=== PATIENT | male | born 1990 | race Caucasian/White ===

== ENCOUNTER 2020-09-01 13:56 | Outpatient (REF) | payer MEDICAID, SELFPAY ==
--- NOTE | ~2020-09-01 | US_ITS ---
EXAMINATION: US ABDOMEN LIMITED CLINICAL INFORMATION: Chest wall mass. COMPARISON: None TECHNIQUE: Real-time imaging of the left anterior rib and left lower back. FINDINGS: At the left anterior rib palpable abnormality there is a hyperechoic ovoid well-circumscribed mass measuring 1.9 x 0.8 x 1.9 cm. No significant Doppler vascularity. At the left lower back palpable abnormality there is a somewhat hyperechoic area which is fairly well-defined measuring 0.7 x 0.4 x 0.6 cm. No Doppler vascularity. US/US abdomen limited IMPRESSION: At both palpable areas, mildly hyperechoic lesions are identified likely representing lipomas.
== END 2020-09-01 13:57 | disposition home or self-care (01) ==
LOC: HO.US 13:56
PROVIDERS: PCP General Practice; Visit Provider General Practice
DX: M79.9 Soft tissue disorder, unspecified (principal)
CPT/HCPCS: 76705

== ENCOUNTER → 2020-11-16 14:52 | Outpatient (BNVA) | payer MEDICAID, SELFPAY | PROVIDERS: PCP General Practice; Visit Provider Surgery | DX: D17.1 Benign lipomatous neoplasm of skin and subcutaneous tissue of trunk (principal) | CPT/HCPCS: 99202 ==

== ENCOUNTER 2022-06-01 18:37 | Outpatient (REF) | payer OTHER, SELFPAY ==
[2022-06-02 02:32] LABS: CT PCR NOT DETECTED (Not Detect.); NG PCR NOT DETECTED (Not Detect.)
== END 2022-06-01 18:38 | disposition home or self-care (01) ==
LOC: HO.LNP 18:37
DX: Z11.3 Encounter for screening for infections with a predominantly sexual mode of transmission (principal); Z71.1 Person with feared health complaint in whom no diagnosis is made
CPT/HCPCS: 87491; 87591

== ENCOUNTER 2022-07-28 14:19 | Outpatient (REF) | payer OTHER, SELFPAY | END 2022-07-28 14:20 | disposition home or self-care (01) | LOC: HO.LNP 14:19 | PROVIDERS: Visit Provider Nurse Practitioner Family | DX: N48.89 Other specified disorders of penis (principal) | CPT/HCPCS: 87255 ==

== ENCOUNTER 2023-09-02 18:43 | Emergency (ER) | payer OTHER, SELFPAY ==
--- NOTE | 2023-09-02 | ECG_ITS ---
Test Reason : CHEST PAIN Blood Pressure : / mmHG Vent. Rate : 069 BPM Atrial Rate : 069 BPM P-R Int : 152 ms QRS Dur : 082 ms QT Int : 348 ms P-R-T Axes : -09 057 041 degrees QTc Int : 372 ms Normal sinus rhythm Normal ECG No previous ECGs available Referred By: Generic ED Physician Electronically Signed By:LAKE VANCE MD
[2023-09-02 18:53] VITALS: BP 125/86; PULSE 74; RESP 18; TEMP 36.7; O2SAT 98; BMI 26.4
[2023-09-02 19:12] LABS: Hematocrit 41.2 % (42.0-52.0); Hemoglobin 14.5 g/dl (14.0-18.0); Mean Corpuscular HGB Conc 35.2 g/dl (31.0-36.0); Mean Corpuscular Volume 85.3 fL (80.0-98.0); Platelet Count 203 X10*3/uL (160-400); Red Blood Count 4.83 X10*6/uL (4.60-5.80); White Blood Count 6.2 X10*3/uL (4.8-10.8)
[2023-09-02 19:25] LABS: Alanine Aminotransferase 37 U/L (0-40); Albumin Level 4.3 g/dL (3.5-5.0); Alkaline Phosphatase 53 U/L (39-117); Anion Gap 12 (12-20); Aspartate Amino Transferase 28 U/L (5-37); Bilirubin Total 0.4 mg/dL (0.0-1.0); Blood Urea Nitrogen 13 mg/dL (9-16); Calcium 9.6 mg/dL (8.4-10.2); Carbon Dioxide 26 mmol/L (22-29); Chloride 106 mmol/L (96-108); Creatinine Clr Calc Pharmacy 147.4; Estimated Glomerular Filt Rate > 60; Glucose Random 118 mg/dL (60-115); Potassium 4.2 mmol/L (3.3-5.1); Sodium 140 mmol/L (135-145); Total Protein 7.6 g/dL (6.5-8.0)
[2023-09-02 19:32] LABS: Troponin-I High Sensitivity < 2.7 ng/L (<3.5-35.0)
[2023-09-02 20:01] VITALS: BP 125/80; PULSE 70; RESP 11; TEMP 36.8; O2SAT 98
--- NOTE | 2023-09-02 21:12 | ED_ITS ---
HPI - Chest Pain General Chief Complaint: Chest Pain Stated Complaint: chest pain, dizziness Time Seen by Provider: 09/02/23 21:00 Source: patient Mode of arrival: ambulatory Limitations: no limitations History of Present Illness HPI narrative: 32 yo male remote hx of cocaine abuse hx of nose bleeds since then developed nose bleed today that lasted longer than usual started to feel woozy and then developed chest tightness and felt off. No known CAD, no hx of VTE. He feels fine now but wanted to get checked out. nose bleed has stopped - no trauma. MD complaint: chest heaviness Onset (ago): hour(s) (few) Timing of current episode: now resolved Prior episodes: Yes Onset: during rest Pain location: substernal Pain radiation: none Quality: tightness Relieving factors: nothing Exacerbating factors: stress Context: recent illness (after nose bleed) Associated symptoms: dyspnea Treatment prior to arrival: none Related Data Home Medications Medication Instructions Recorded Confirmed No Known Home Meds 11/16/20 11/16/20 Allergies Allergy/AdvReac Type Severity Reaction Status Date / Time acetaminophen [From VICODIN] Allergy Intermediate VOMITING Verified 09/02/23 18:53 hydrocodone [From VICODIN] Allergy Intermediate VOMITING Verified 09/02/23 18:53 Hydrocodone Bitartrate Allergy Unknown vomiting, Uncoded 09/02/23 18:53 pallor Review of Systems 2 Review of Systems: Constitutional : No Fever, No Chills ENT/Mouth : No Ear Pain, No Nasal Congestion, positive nose bleed Eyes: No Eye Pain, No Swelling, No Redness Cardiovascular : pos Chest Pain, No SOB Respiratory : No Cough, No Sputum Gastrointestinal : No Nausea, No Vomiting, No Diarrhea Genitourinary : No Dysuria, No Hematuria Musculoskeletal : No joint pain, No Myalgias Skin : No Skin Lesions, No rash Neuro : No Weakness, No Numbness, No headache Psych : No Anxiety/Panic, No Depression Heme/Lymph: positive Bleeding,No Lymphadenopathy Endocrine : No Polyuria, No Polydipsia All other systems reviewed and are negative [facility] Past Medical History Attestation statement: The following information was validated with the patient. Source: old records reviewed Medical History Acute anterior epistaxis Surgical History History of surgery on left wrist History of fracture of clavicle Family History Family History Paternal Grandfather Lung cancer Throat cancer Maternal Grandmother Lung cancer Throat cancer Social History Social History Alcohol intake: never Patient Tobacco Use Status: Former Tobacco user Advance Directives: No Advance Directives Information Provided: No Physical Exam 2 Vital Signs: Vital Signs: Last Vital Signs Temp 98.3 F 09/02/23 20:01 Pulse 70 09/02/23 20:01 Resp 11 L 09/02/23 20:01 BP 125/80 09/02/23 20:01 Pulse Ox 98 09/02/23 20:01 O2 Del Method Room Air 09/02/23 20:01 BMI result Body Mass Index 26.4 Appearance: Alert. Oriented X3. No acute distress. Eyes: Pupils equal, round and reactive to light. ENT: Pharynx normal. Dried blood on L nares no active bleeding Neck: Normal inspection. Neck supple. CVS: Normal heart rate and rhythm. Pulses normal. Respiratory: No respiratory distress. Breath sounds normal. Abdomen: Soft and nontender. Skin: Skin warm and dry. Normal skin color. Normal skin turgor. Extremities: No lower extremity edema. No calf ttp Neuro: Oriented X 3. No motor deficit. No sensory deficit. Medical Decision Making Medical Decision Making [facility] Narrative: 32 yo male with hx of nosebleeds remote cocaine denies any use today here with resolved chest pain that started after nose bleed felt tightness he is PERC negative, distal pulses intact doubt dissection, no CAD risk factors is atypical in nature not related to exertion. Clear lungs no hypoxia doubt PTX. Will obtain labs, EKG and troponin if negative stable for DC Differential Diagnosis Differential Diagnoses: The differential diagnosis associated with the presentation includes atypical chest pain, anxiety reaction, near syncope pulses intact doubt dissection PERC negative doubt VTE Admission/Observation Consideration of admission/observation: Escalation of care including admission/observation considered work up negative stable for DC Lab Data [facility] Lab Attestation statement: I reviewed the patient's lab results. 09/02/23 19:06 09/02/23 19:06 Labs: Lab Results 09/02/23 Range/Units 19:06 WBC 6.2 (4.8-10.8) X10*3/uL RBC 4.83 (4.60-5.80) X10*6/uL Hgb 14.5 (14.0-18.0) g/dl Hct 41.2 L (42.0-52.0) % MCV 85.3 (80.0-98.0) fL MCH 30.0 (27.0-33.0) pg MCHC 35.2 (31.0-36.0) g/dl RDW 12.0 (11.0-16.0) % Plt Count 203 (160-400) X10*3/uL MPV 10.0 (9.4-12.4) fL Absolute Nucleated RBC 0.000 (0.0-0.012) X10*3/uL Nucleated RBC % (auto) 0.0 (0.0-0.2) /100WBC Sodium 140 (135-145) mmol/L Potassium 4.2 (3.3-5.1) mmol/L Chloride 106 (96-108) mmol/L Carbon Dioxide 26 (22-29) mmol/L Anion Gap 12 (12-20) BUN 13 (9-16) mg/dL Creatinine 0.78 (0.5-1.4) mg/dL Estim Creat Clear Calc 147.4 Estimated GFR > 60 Random Glucose 118 H (60-115) mg/dL Calcium 9.6 (8.4-10.2) mg/dL Total Bilirubin 0.4 (0.0-1.0) mg/dL AST 28 (5-37) U/L ALT 37 (0-40) U/L Alkaline Phosphatase 53 (39-117) U/L Troponin I High Sens < 2.7 (<3.5-35.0) ng/L Total Protein 7.6 (6.5-8.0) g/dL Albumin 4.3 (3.5-5.0) g/dL Independent Interpretation I performed an independent interpretation of an: EKG Interpretation: Rate: 69 Rhythm: NSR Hallock: normal Normal P waves. Normal ACOSTA. Normal QRS complex. ST T wave : normal no TEVIN qTC: 372 prior studies: no acute ischemia The study has been interpreted contemporaneously by me. . External Record Review External record reviewed: Office record Discharge Plan Discharge Clinical Impression: Atypical chest pain, Acute anterior epistaxis Patient Disposition: Home, Self-Care Instructions: Chest Pain (ED), Nosebleed (ED) Additional Instructions: use saline mist to nose twice a day to keep area from cracking. use aquaphor or bacitracin on cracked area twice a day for 3 days. return for worsening bleeding pain dizziness or any other concerns. rest and take it easy. Prescriptions: No Action No Known Home Meds Stand Alone Forms: Work/School Release
[2023-09-02 22:23] VITALS: BP 120/70; PULSE 74; RESP 19; TEMP 36.8; O2SAT 98
== END 2023-09-02 22:28 | disposition home or self-care (01) ==
PROVIDERS: Emergency Provider Emergency Medicine; PCP General Practice
DX: R07.89 Other chest pain (principal); R04.0 Epistaxis; F14.10 Cocaine abuse, uncomplicated
CPT/HCPCS: 36415; 80053; 84484; 85027; 93005; 99283; 99284

== ENCOUNTER → 2023-09-02 18:45 | Outpatient (BNV) | payer OTHER, SELFPAY | PROVIDERS: Emergency Provider Emergency Medicine; PCP General Practice; Visit Provider Internal Medicine Cardiovascular Disease | DX: R07.9 Chest pain, unspecified (principal) | CPT/HCPCS: 93010 ==

== ENCOUNTER 2023-12-29 22:24 | Emergency (ER) | payer OTHER, SELFPAY ==
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
[2023-12-29 22:28] VITALS: BP 136/97; PULSE 104; RESP 20; TEMP 36.6; O2SAT 97; BMI 24.4
[2023-12-29] MEDS: Ibuprofen 600 MG TABLET PO (23:57)
[2023-12-29] MEDS: Diphth,Pertus(ACell),Tet Adult 0.5 ML SYRINGE IM (23:57)
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
[2023-12-30 00:33] VITALS: BP 130/82; PULSE 90; RESP 18; TEMP 36.8; O2SAT 97
== END 2023-12-30 00:34 | disposition home or self-care (01) ==
PROVIDERS: Emergency Provider Emergency Medicine; PCP General Practice
DX: S90.01XA Contusion of right ankle, initial encounter (principal); S80.811A Abrasion, right lower leg, initial encounter; S60.812A Abrasion of left wrist, initial encounter; V28.09XA Other motorcycle driver injured in noncollision transport accident in nontraffic accident, initial encounter; Y93.89 Activity, other specified; Y92.410 Unspecified street and highway as the place of occurrence of the external cause; Y99.9 Unspecified external cause status; Z23 Encounter for immunization
CPT/HCPCS: 73110; 73560; 73610; 90471; 90715; 99284

== ENCOUNTER 2024-01-30 16:18 | Outpatient (REF) | payer OTHER, SELFPAY ==
--- NOTE | ~2024-01-30 | XR_ITS ---
EXAMINATION: XR HAND/WRIST, LEFT CLINICAL INFORMATION: Hand pain. COMPARISON: Left wrist 12/29/2023. TECHNIQUE: PA, lateral, and oblique views of the left hand and wrist. FINDINGS: ORIF distal left radius with no evidence of hardware failure. No acute fracture. Mineralization appears normal. No significant degenerative changes. XR/XR hand wrist LT IMPRESSION: Stable ORIF distal left radius. No acute fracture. Electronically signed by: Gonzalez Mackenzie MD 02/14/2024 01:53 PM EDT
== END 2024-01-30 16:19 | disposition home or self-care (01) ==
LOC: HO.XRAY 16:18
PROVIDERS: Visit Provider General Practice
DX: M25.532 Pain in left wrist (principal); M79.642 Pain in left hand
CPT/HCPCS: 73110; 73130

== ENCOUNTER 2025-01-12 13:53 | Outpatient (REF) | payer OTHER, SELFPAY ==
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
--- OUTSIDE RECORDS SUMMARY | 2025-01-12 14:27 | XMS_ITS | Clinical Summary ---
Author Organization [facility] Address [address] [place] [address] Care Team Providers Care Brush Polisher Name Role Phone Yusra Howard MD Primary Care Provider [phone] Allergies No known active allergies Medications multivitamin with folic acid 400 mcg tablet tablet Take 1 tablet by mouth once daily. Active Social History Tobacco Use Types Packs/Day Years Used Date Smoking Tobacco: Former Cigarettes Q uit: 2018 Passive Smoke Exposure: Past Smokeless Tobacco: Never Alcohol Use Standard Drinks/Week Comments Yes 0 (1 standard drink = 0.6 oz pur e alcohol) Social; 1-2 times per month Sex and Gender Information Value Date Recorded Sex Assigned at Male 02/12/2024 8:47 AM EDT Legal Sex Male 1:11 PM EDT Gender Identity Male 02/12/2024 8:47 AM EDT Sexual Orientation Straight 02/12/2024 8: 47 AM EDT Last Filed Vital Signs Vital Sign Reading Time Taken Comments Blood Pressure 116/72 02/21/2024 11:16 AM EDT Pulse 66 02/21/2024 11:16 AM EDT Temperature 36.6 C (97.8 F) 02/21/2024 11:11 AM EDT Respiratory Rate 16 02/21/2024 11:16 AM EDT Oxygen Saturation 100% 02/21/2024 11:16 AM EDT Inhaled Oxygen Concentration - - Weight 78.5 kg (173 lb) 02/21/2024 8:14 AM EDT Height 180.3 cm (5' 11 ) 02/21/2024 8:14 AM EDT Body Mass Index 24.13 02/21/2024 8:14 AM EDT Plan of Treatment Health Maintenance Due Date Last Done Comments HIV Screening 1992 Varicella Vaccines (1 of 2 - 13+ 2-dose series) 2005 HPV Vaccines (2 - Male 3-dose series) 09/13/2010 08/16/2010 Hepatitis C Screening 2010 Hepatitis A Vaccines (2 of 2 - 2-dose series) 02/16/2011 08/16/2010 Pneumococcal Vaccine: Pediatrics (0 to 5 Years) and At-Risk Patients (6 to 49 Years) (2 of 2 - PCV) 09/03/2018 09/03/2017 COVID-19 Vaccine (1 - 2023- season) 2024 Depression Screening 06/04/2024 Influenza Vaccine (#1) 2025 05/16/2019 DTaP/Tdap/Td Vaccines (8 - Td or Tdap) 06/26/2027 06/26/2017, 02/01/2007, 10/06/1997, Additional history exists Hepatitis B Vaccines Completed 09/02/1993, 01/02/1993, 1992 HIB Vaccines Completed 02/02/1994, 0 06/1993, 04/04/1993, Additional history exists IPV Vaccines Completed 06/04/1994, 0 06/1993, 04/04/1993, Additional history exists MMR Vaccines Completed 10/06/1997, 02/02/1994 Meningococcal Vaccine Aged Out 02/01/2007 No chantel billy eligible based on patient's age to complete this topic Meningococcal B Vaccine Aged Out No l onger eligible based on patient's age to complete this topic Rotavirus Vaccines Aged Out No longer eligible based on patient's age to complete this topic Medical Devices Implanted Type Area Retail Beauty Specialist Device Identifier Shelf Expiration Date Model / Serial / Lot Mesh Ventralex St 4cm Circ [id number] - [id number] Implanted:Qty: 1 on 02/21/2024 by Byron Ruelas MD at [facility] Mesh N/A: Umbilical PS-BARD DAVOL 07/01/2025 [id number] / / [id number] Insurance [facility] Advance Directives * Full Code (Latest Code Status on File) Date Activated Date Inactivated Comments 02/21/2024 7:53 AM Care Teams Brush Polisher Relationship Specialty Start Date End Date Yusra Howard MD [address] [place] [id number] PCP - General Cooler Supervisor 02/12/24
--- OUTSIDE RECORDS SUMMARY | 2025-01-12 14:27 | XMS_ITS | Clinical Summary ---
Author Organization [facility] Address [address] [place] [address] Phone Care Team Providers Care Release Manager Name Role Phone Yusra Howard MD Primary Care Provider + Allergies No known active allergies Medications No known medications Family History Medical History Relation Comments Diabetes Mother Relation Status Comments Father Alive Mother Alive Social History Tobacco Use Types Packs/Day Years Used Date Smoking Tobacco: Some Days Cigarettes Smokeless Tobacco: Never Tobacco Cessation:Ready to Q uit: Not Asked; Counseling Given: Not Answered Alcohol Use Standard Drinks/Week Comments Yes 0 (1 standard drink = 0.6 oz pur e alcohol) Education Answer Date Recorded Are you interested in more education? Not on kassie e 09/30/2022 Are you concerned about learning? Not on file 09/30/2022 No 09/30/2022 No 09/30/2022 Digital Access Answer Date Recorded No 2022 No 2022 No 2022 Reliable internet access at home? Not on file 2022 Device with a working camera? Not on file Sex and Gender Information Value Date Recorded Sex Assigned at Not on file Legal Sex Male 10:31 AM EST Gender Identity Not on file Sexual Orientation Not on file Last Filed Vital Signs Vital Sign Reading Time Taken Comments Blood Pressure 102/62 04/11/2022 8:58 AM EST Pulse 65 04/11/2022 8:58 AM EST Temperature - - Respiratory Rate - - Oxygen Saturation - - Inhaled Oxygen Concentration - - Weight 76.8 kg (169 lb 6.4 oz) 04/11/2022 8:58 A M EST Height 180.3 cm (5' 11 ) 04/11/2022 8:58 AM EST Body Mass Index 23.63 04/11/2022 8:58 AM EST Plan of Treatment Health Maintenance Due Date Last Done Comments Adult Td,Tdap Booster 1992 DEPRESSION SCREENING 2004 SMOKING Hx and SMOKELESS TOB ACCO SCREENING 2005 HEPATITIS C SCREENING 2010 HIV ONE-TIME SCREENING (18-6 5 YEARS) 2010 PNEUMOCOCCAL VACCINES (0-49 years) (1 of 2 - PCV) 10/30/2011 COVID-19 VACCINE ( - 2023-2 5 season) 2024 HEPATITIS A VACCINES Aged Out No long er eligible based on patient's age to complete this topic HIB VACCINES Aged Out No longer eligi ble based on patient's age to complete this topic MENINGOCOCCAL VACCINES (ACWY) Aged Out No longer eligible based on patient's age to complete this topic MENINGOCOCCAL VACCINES (B) Aged Out N o longer eligible based on patient's age to complete this topic Medical Devices Not on file Insurance [facility] PPO [facility] PPO [facility] PPO [facility] PPO [facility] PPO [facility] PPO Care Teams Release Manager Relationship Specialty Start Date End Date Yusra Howard MD PCP - General 04/11/22 Additional Source Comments The information contained in this document represents components of the legal health record. It is not the complete legal health record.[facility]
[2025-01-15 23:28] LABS: C. Trachomatis RNA TMA, Throat NOT DETECTED; N. gonorrhoeae RNA TMA, Throat NOT DETECTED
== END 2025-01-12 13:54 | disposition home or self-care (01) ==
LOC: HO.HHCLNP 13:53
PROVIDERS: Visit Provider Internal Medicine
DX: Z11.3 Encounter for screening for infections with a predominantly sexual mode of transmission (principal); Z11.8 Encounter for screening for other infectious and parasitic diseases; J02.9 Acute pharyngitis, unspecified
CPT/HCPCS: 87070; 87491; 87591

== ENCOUNTER 2025-02-23 06:00 | Outpatient (RCR) | payer OTHER, SELFPAY | END 2025-02-23 06:57 | disposition home or self-care (01) | LOC: HO.PTCHIC 06:00 | PROVIDERS: PCP General Practice; Visit Provider Nurse Practitioner Family | DX: M54.6 Pain in thoracic spine (principal) | CPT/HCPCS: 97012; 97110; 97112; 97116; 97140; 97161; 97530 ==

== ENCOUNTER → 2025-03-04 07:44 | Outpatient (BNV) | payer OTHER, SELFPAY | PROVIDERS: PCP General Practice; Visit Provider Radiology Diagnostic Radiology | DX: M47.817 Spondylosis without myelopathy or radiculopathy, lumbosacral region (principal); M51.27 Other intervertebral disc displacement, lumbosacral region | CPT/HCPCS: 72148 ==

== ENCOUNTER 2025-03-04 07:55 | Outpatient (REF) | payer OTHER, SELFPAY ==
--- NOTE | ~2025-03-04 | MR_ITS ---
EXAMINATION: MR LUMBAR SPINE WITHOUT CONTRAST CLINICAL INFORMATION: Persistent low back pain after lifting weight. COMPARISON: None available. TECHNIQUE: MRI of the lumbar spine was obtained using routine sequences without contrast. FINDINGS: Last rib-bearing vertebra labeled T12. No bone marrow STIR signal abnormality. Decreased intervertebral disc signal and height at L5-S1. Normal alignment. Conus medullaris ends at inferior endplate of L1. 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 T12-L1: Broad-based disc bulging. Facet joint hypertrophy. No central spinal canal or neuroforamina stenosis. L1-2: Broad-based disc bulging. No central spinal canal or neuroforamina stenosis. L2-3: Broad-based disc bulging. Facet joint and ligamentum flavum hypertrophy. No central spinal canal or neuroforamina stenosis. L3-4: Broad-based disc bulging. Facet joint and ligamentum flavum hypertrophy. No central spinal canal or neuroforamina stenosis. L4-5: Broad-based disc bulging. Facet joint hypertrophy. No central spinal canal or neuroforamina stenosis. L5-S1: There is a central broad-based herniated disc at by in the S1 nerve roots without compression. Bilateral facet joint and ligamentum flavum hypertrophy. Bilateral neuroforamina narrowing likely encroaching L5 exiting nerve roots. No prevertebral compartment hematoma, mass or fluid collections. MR/MR lumbar spine wo con IMPRESSION: Multilevel spondylosis L1-2 to L5-S1, pronounced at L5-S1 encroaching L5 nerve roots. Broad-based central herniated disc, L5-S1 abutting the S1 nerve roots. Electronically signed by: Patrick Owens MD 03/04/2025 08:42 AM EDT
--- OUTSIDE RECORDS SUMMARY | 2025-03-04 07:58 | XMS_ITS | Encounter Summary ---
Author Organization [employer] Address [address] [place] [address] 7 [place] [address] Care Team Providers Care Remote Encoding Operations Supervisor Name Role Phone Yusra Howard MD Primary Care Provider [phone] Reason for Referral * Consultation (Routine) - Pending Review Specialty Diagnoses / Procedures Referred By Lisa t Referred To Contact Orthopaedic Surgery Diagnoses Acute low back pain, unspecified back pain laterality, unspecified whether sciatica present Yusra Howard MD [address] [place] [phone] Phone: tel: fax: [facility] [address] [place] [address] [place] [address] Phone: tel: fax: Referral ID Status Reason Start Date Expiration Date Visits Requested Visits Authorized [id number] Pending Review Specialty Services Required 12/25/2024 12/25/2025 1 1 Encounter Details Date Type Department Care Team (Late st Contact Info) Description 12/25/2024 Orders Only [facility] MEDICINE [address] [place], [place] [phone] Yusra Howard MD [address] [place], [place] [phone] Acute low back pain, unspecified back pain laterality, unspecified whether sciatica present (Primary Dx) Social History Tobacco Use Types Packs/Day Years [...] AM EDT documented as of this encounter Plan of Treatment Scheduled Referrals Name Type Priority Associated Diagnoses Orde r Schedule Referral to Orthopaedic Surgery Outpatient Referral Routine Acute low back pain, unspecified back pain laterality, unspecified whether sciatica present Expected: 12/25/2024 (Approximate), Expires: 12/25/2025 documented as of this encounter Visit Diagnoses Diagnosis Acute low back pain, unspecified back pain laterality, unspecified whether sciatica present- Primary documented in this encounter Additional Health Concerns Assessment Noted Time PHQ-9 Depression Total Score: 2 01/30/20 24 3:35 PM EDT documented as of this encounter Care Teams Remote Encoding Operations Supervisor Relationship Specialty Start Date End Date Yusra Howard MD [address] [place] [address] PCP - General Family Medicine 06/22/20 documented as of this encounter
--- OUTSIDE RECORDS SUMMARY | 2025-03-04 07:58 | XMS_ITS | Encounter Summary ---
Author Organization [employer] Address [address] [facility] 7t [place] [address] Care Team Providers Care Construction Trench Digger Name Role Phone Yusra Howard MD Primary Care Provider [phone] Reason for Visit * Reason Onset Date Comments Referral 02/04/2025 Encounter Details Date Type Department Care Team ([facility] st Contact Info) Description 02/04/2025 Telephone [facility] MEDICINE [address] [place], [place] [phone] Yusra Howard MD [address] [place], [place] [phone] Referral Social History Tobacco Use Types Packs/Day Years [...] encounter Miscellaneous Notes * Telephone Encounter - Dann Sanchez - 02/04/2025 4:08 PM EDT Tc from pt reporting [facility] Needs the authorization for workers comp in the referral for MRI. Any questions contact pt at [phone] documented in this encounter Plan of Treatment Not on file documented as of this encounter Visit Diagnoses Not on filedocumented in this encounter Additional Health Concerns Assessment Noted Time PHQ-9 Depression Total Score: 2 01/30/20 24 3:35 PM EDT documented as of this encounter Care Teams Construction Trench Digger Relationship Specialty Start Date End Date Yusra Howard MD [address] [place] [address] PCP - General Family Medicine 06/22/20 documented as of this encounter
--- OUTSIDE RECORDS SUMMARY | 2025-03-04 07:58 | XMS_ITS | Clinical Summary ---
Author Organization [employer] Address [address] [facility] 7t [place] [address] Care Team Providers Care Mixer Crane Operator Name Role Phone Yusra Howard MD Primary Care Provider Allergies Active Allergy Reactions Criticality Noted Date Comments Acetaminophen 07/24/2017 Other Reaction(s): Pale complexion, Vomiting Hydrocodone 07/24/2017 Other Reaction(s): Pale complexion, Vomiting Medications albuterol (ProAir HFA) 108 (90 Base) MCG/ACT inhaler Inhale 2 puffs every 4 (four) hours. 01/16/2019 Active gabapentin (Neurontin) 100 MG capsuleIndicati ons:Left wrist pain Take 1 capsule (100 mg) by mouth at bedtime. For pain 30 capsule 01/30/2024 Active ibuprofen 400 MG tablet 1-2 tablets PO TID prn pain/ fever/OLMOS 90 tablet 01/12/2025 Active Active Problems Problem Noted Date Diagnosed Date Pharyngitis 01/12/2025 Assessment & Plan (01/12/2025 4:49 PM EDT): Rapid viral test are negative, it is possible that he has strep colonization and an early infection. I will Rx with penicillin x 10 days. Bacterial throat culture + NG/CT throat culture results to follow Rest (sleep at least 8 hours a night). Hydrate with plenty of water (avoid caffeine and alcohol). Use saline nose drops to loosen mucus Take Acetaminophen (Tylenol )/Ibuprofen as needed to reduce fever, headache, body aches or discomfort Gargle with salt water and use throat sprays/lozenges for throat pain. Use heated, humidified air. If you do not have a humidifier, take hot showers. Cover coughs and sneezes using the crook of your elbow. If you have a fever, stay home and away from others (self isolation) until fever-free for 72 hours (temperature should be less than 100 F without medication). Asymmetric tonsils 01/12/2025 Assessment & Plan (01/12/2025 4:50 PM EDT): Apparently for the past 4 years, left is greater than right tonsil. Patient to complete antibiotics x 10 days, cultures to follow Refer to ENT, may need tonsillectomy due to recurrent pharyngitis, unclear why is one of the tonsils bigger than the other one, may need a biopsy. Left wrist pain 01/31/2024 Assessment & Plan (01/31/2024 2:31 PM EDT): Repeat xray to rule out occult fracture If negative, will order MRI to examine for tendoninous injury Refer to hand surgery if MRI is necessary Continue wrist brace, gentle stretching Tylenol, motrin for pain during the day May trial T3 300/30 at nighttime, reviewed risks and benefits of opioid containing medications, he denies use of cocaine in > 5 years Apply silvadene to burn/laceration of wrist when not wearing splint Umbilical hernia without obstruction and without gangrene 12/04/2023 Overview (12/04/2023): Dx on CT scan 10/2023 [facility] ER Assessment & Plan (12/04/2023 10:04 PM EDT): Will refer for possible surgical repair: Byron Ruelas [place], [place] He is aware of signs to look out for (inability to push a hernia in, change in skin color) and to proceed to ER if those occur Hiatal hernia 12/04/2023 Assessment & Plan (12/04/2023 10:04 PM EDT): Manage with OTC Tums and manipulation maneuvers COVID-19 09/13/2023 Assessment & Plan (09/13/2023 9:53 AM EDT): Televisit Pt with c/o congestion, cough, sore throat, headache, body aches, and fatigue. X 2 days, patient reports he tested positive for Covid-19 with an in home test Pt is not interested in Paxlovid. Would like to do supportive measures only Plan: lives with his brother, Counseled about isolation Patient requested a Letter for employer stating that he had a televisit with us. I instructed patient to monitor his symptoms and if he was to develop worsening cough, sob or difficulty breathing to come in to our walk in center Cocaine abuse 11/19/2017 Dyslipidemia 11/19/2017 Mass of soft tissue 11/19/2017 Mild intermittent asthma 09/03/2017 Overriding toes 09/03/2017 Encounters Date Type Department Care Team Description 02/04/[address] [address] Yusra Howard MD Referral 01/20/2025 Results Follow-Up [address] [address] Yajaira Frias MD POCT Rapid Strep A LU ID NOW, POCT Rapid COVID-19 Binax NOW, Culture, Throat 01/19/[address] [address] Yusra Howard MD Referral 01/12/2025 10:30 AM EDT Office Visit [address] [address] Yajaira Frias MD Pharyngitis, unspecified etiology (Primary Dx); Asymmetric tonsils; Sore throat 01/12/2025 Orders Only [address] [address] Yajaira Frias MD 01/12/2025 Travel 12/25/[address] [address] Pooja Ingram FNP 12/25/2024 Orders Only [address] [address] Yusra Howard MD Acute low back pain, unspecified back pain laterality, unspecified whether sciatica present (Primary Dx) 12/25/[address] [address] Yusra Howard MD Care Coordination 12/22/[address] [address] Yusra Howard MD Letter for School/Work 12/18/[address] [address] Yusra Howard MD Referral 12/17/2024 10:45 AM EDT Office Visit [address] [address] Pooja Ingram FNP Acute left-sided thoracic back pain (Primary Dx) 12/17/2024 Travel 12/16/2024 Travel 12/15/[address] [address] Yg Jeronimo [place] 12/15/[address] [address] Yusra Howard MD ER Follow-up from Last 3 Months Immunizations Immunization Administration Dates Next Due DTaP, 5 pertussis antigens 10/06/1997,,09/02/1993,04/04,01/02/1993 HPV, Quadrivalent 08/16/2010 Hep A, ped/adol, 2 dose 08/16/2010 Hep B, Adolescent or Pediatric 09/02/1993,1992,1992 Hib (HbOC) 02/02/1994, 4,04/04/1993,01/02 IPV 06/04/1994,199 4,04/04/1993,01/02 Influenza injectable quadriv alent preservative free 05/16/2019 MMR 10/06/1997,02/02/1994 Meningococcal MCV4O 02/01/2007 Pneumococcal Polysaccharide PPSV23 09/03/2017 TD (adult), 2 Lf tetanus tox oid, preservative free, adsorbed 06/26/2017 Tdap 02/01/2007 Social History Tobacco Use Types Packs/Day Years Used Date Smoking Tobacco: Former Cigarettes Passive Smoke Exposure: Past Smokeless Tobacco: Former Tobacco Cessation:Counseling Given: Not Answered Alcohol Use Standard Drinks/Week Comments Never 0 [...] Orientation Straight 04/03/2022 10 :15 AM EDT Last Filed Vital Signs Vital Sign Reading Time Taken Comments Blood Pressure 120/80 01/12/2025 10:29 AM EDT Pulse 84 01/12/2025 10:29 AM EDT Temperature 36.4 C (97.5 F) 01/12/2025 10:29 AM EDT Respiratory Rate 20 01/12/2025 10:29 AM EDT Oxygen Saturation 96% 12/17/2024 10:45 AM EDT Inhaled Oxygen Concentration - - Weight 81.7 kg (180 lb 3.2 oz) 01/12/2025 10:29 AM EDT Height 180.3 cm (5' 11 ) 12/17/2024 10:45 AM EDT Body Mass Index 25.13 12/17/2024 10:45 AM EDT Plan of Treatment Health Maintenance Due Date Last Done Comments HIV Screening 1992 Alcohol/Substance Use Screening 2004 Family Planning (PISQ) 10/30/2007 HPV Vaccines (2 - Male 3-dose series) 09/13/2010 08/16/2010 Hepatitis C Screening 2010 Hepatitis A Vaccines (2 of 2 - 2-dose series) 02/16/2011 08/16/2010 Pneumococcal Vaccine: Pediatrics (0 to 5 Years) and At-Risk Patients (6 to 49) Years (2 of 2 - PCV) 09/03/2018 09/03/2017 Depression Screening 01/29/2025 01/30/2024, 01/30/20 24 SDOH Screening 01/29/2025 01/30/2024 COVID-19 Vaccine ( - season) 2025 Influenza Vaccine (#1) 2025 05/16/2019 Disability Screening 12/17/2025 12/17/2024 Tobacco Screening 12/17/2025 12/17/2024 DTaP/Tdap/Td Vaccines (8 - Td or Tdap) 06/26/2027 06/26/2017, 02/01/2007, 10/06/1997, Additional history exists Zoster Vaccines (1 of 2) 2042 RSV Patients and Patients Aged 60 years or older (1 - 1-dose 75+ series) 10/30/2067 Hepatitis B Vaccines Completed 09/02/1993, 01/02/1993, 1992 HIB Vaccines Completed 02/02/1994, 06/1993, 04/04/1993, Additional history exists IPV Vaccines Completed 06/04/1994, 06/1993, 04/04/1993, Additional history exists Meningococcal Vaccine Aged Out 02/01/2007 No chantel billy eligible based on patient's age to complete this topic Meningococcal B Vaccine Aged Out No l onger eligible based on patient's age to complete this topic RSV under 20 months Aged Out No longe r eligible based on patient's age to complete this topic Rotavirus Vaccines Aged Out No longer eligible based on patient's age to complete this topic Procedures Procedure Name Priority Date/Time Associated Diagnosis Comments CHLAMYDIA/N. GONORRHOEAE RNA, TMA, THROAT Routine 01/12/2025 11:12 AM EDT CULTURE, THROAT Routine 01/12/2025 11:12 AM EDT Pharyngitis, unspecified etiology Sore throat POCT RAPID COVID ANTIGEN Routine 01/12/2025 10:48 AM EDT Sore throat POC LU ID NOW STREP A Routine 01/12/2025 10:42 AM EDT Sore throat from Last 3 Months Results * Chlamydia/N. Gonorrhoeae RNA, TMA, Throat (01/12/2025 11:12 AM EDT) C. Trachomatis RNA TMA, Throat NOT DETECTED [facility] N. gonorrhoeae RNA TMA, Throat NOT DETECTED [facility] Comment:REFERENCE RANGE: NOT DETECTEDMethodology: School Social Worker Mediated Amplification (TMA) to detect RNA.The analytical performance characteristics of this assayhave been determined by [facility]. The modificationshave not been cleared or approved by the FDA. This assay hasbeen validated pursuant to the CLIA regulations and is usedfor clinical purposes.For additional information, please refer tohttps://education.Canwest.FastCall/faq/VGX722(This link is being provided for informational/educationalpurposes only.)THIS TEST WAS PERFORMED AT:[employer] [id number] [place] [id number] ROBISON MD,PHD,MONICA 01/12/2025 11:1 2 AM EDT 01/12/2025 2:03 PM EDT us Yajaira Frias MD LAB MICROBIOLOGY - GENER AL ORDERABLES Final Result Performing Organization Address [facility] Co de Phone Number [facility] [address] [place] [phone] * Culture, Throat (01/12/2025 11:12 AM EDT) Throat Structure of anterior region of neck / Unknown 01/12/2025 11:12 AM EDT 01/12/2025 2:01 PM EDT Comment:Throat Narrative [facility] - 01/14/2025 7:54 AM EDT Throat Culture No Group A Beta-hemolytic Streptococci isolated. Specimen Source: Throat us Yajaira Frias MD LAB MICROBIOLOGY - GENER AL ORDERABLES Final Result Performing Organization Address [facility] Phone Number [facility] [address] [place] [phone] * POCT Rapid COVID-19 Binax NOW (01/12/2025 10:48 AM EDT) Rapid COVID Ag Negative [facility] Swab 01/12/2025 10:4 8 AM EDT us Yajaira Frias MD POINT OF CARE TEST ENTER /EDIT ORDERABLES Final Result Performing Organization Address [facility] Co de Phone Number [facility] [address] [place] [phone] * POCT Rapid Strep A LU ID NOW (01/12/2025 10:42 AM EDT) Rapid Strep A Screen Negative Negative, None Detected [facility] Swab 01/12/2025 10:4 2 AM EDT us Yajaira Frias MD POINT OF CARE TEST ENTER /EDIT ORDERABLES Final Result [facility] [address] [place] [address] [phone] from Last 3 Months Insurance [facility] [employer] [employer] Member Subscriber Plan / Payer (Ef fective 2024-Present) Name:Homero Chaney Relation to Subscriber:Self Name:Homero Chaney Payer ID:[id number] Group ID:Not on file Type:Not on file Address: [address] [place] [id number] Care Teams Mixer Crane Operator Relationship Specialty Start Date End Date Yusra Howard MD [address] [place] [address] PCP - General Family Medicine 06/22/20
--- OUTSIDE RECORDS SUMMARY | 2025-03-04 07:58 | XMS_ITS | Encounter Summary ---
Author Organization [email or web address] Address [address] [facility] 7t [place] [address] Care Team Providers Care Behavioral Assistant Name Role Phone Yusra Howard MD Primary Care Provider [phone] Encounter Details Date Type Department Care Team (Late st Contact Info) Description 01/20/2025 Results Follow-Up [facility] MEDICINE [address] [place], [place] [phone] Yajaira Frias MD [address] [place] [address] POCT Rapid Strep A LU ID NOW, POCT Rapid COVID-19 Binax NOW, Culture, Throat Social History Tobacco Use Types Packs/Day Years [...] as of this encounter Plan of Treatment Not on file documented as of this encounter Visit Diagnoses Not on filedocumented in this encounter Additional Health Concerns Assessment Noted Time PHQ-9 Depression Total Score: 2 01/30/20 24 3:35 PM EDT documented as of this encounter Care Teams Behavioral Assistant Relationship Specialty Start Date End Date Yusra Howard MD [address] [place] [address] PCP - General Family Medicine 06/22/20 documented as of this encounter
--- OUTSIDE RECORDS SUMMARY | 2025-03-04 07:58 | XMS_ITS | Encounter Summary ---
Author Organization [employer] Address [address] [facility] 7t [place] [address] Care Team Providers Care Slot Machine Department Floorperson Name Role Phone Yusra Howard MD Primary Care Provider [phone] Encounter Details Date Type Department Care Team ([facility] st Contact Info) Description 02/01/2024 Orders Only [facility] MEDICINE [address] [place], [place] [phone] Yusra Howard MD [address] [place], [place] [phone] Left wrist pain (Primary Dx) Social History Tobacco Use Types Packs/Day Years Used Date Smoking Tobacco: Never Passive Smoke Exposure: Never Smokeless Tobacco: Never Alcohol Use Standard Drinks/Week Comments Never 0 [...] as of this encounter Visit Diagnoses Diagnosis Left wrist pain- Primary Pain in joint, forearm documented in this encounter Additional Health Concerns Assessment Noted Time PHQ-9 Depression Total Score: 2 01/30/20 24 3:35 PM EDT documented as of this encounter Care Teams Slot Machine Department Floorperson Relationship Specialty Start Date End Date Yusra Howard MD [address] [place] [address] PCP - General Family Medicine 06/22/20 documented as of this encounter
--- OUTSIDE RECORDS SUMMARY | 2025-03-04 07:58 | XMS_ITS | Encounter Summary ---
Author Organization [employer] Address [address] [facility] [address] [place] [address] Care Team Providers Care Professor Of Political Science Name Role Phone Yusra Howard MD Primary Care Provider [phone] Reason for Visit * Reason Onset Date Comments Letter for School/Work 12/22/2024 Encounter Details Date Type Department Care Team ([facility] [address] Contact Info) Description 12/22/2024 Telephone [facility] [address] [place], [place] [phone] Yusra Howard MD [address] [place], [place] [phone] Letter for School/Work Social History Tobacco Use [...] update regarding prior message. Contact pt at [phone] * Telephone Encounter - Dann Sanchez - 12/23/2024 8:51 AM EDT Tc from pt requesting to be contact with status in regards to his letter for work. Contact pt at [phone] * Telephone Encounter - Juliet Nielson RN [...] hurting. 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 Contact pt at [phone] for any questions. documented in this encounter Plan of Treatment Not on file documented as of this encounter Visit Diagnoses Not on filedocumented in this encounter Additional Health Concerns Assessment Noted Time PHQ-9 Depression Total Score: 2 01/30/20 24 3:35 PM EDT documented as of this encounter Care Teams Professor Of Political Science Relationship Specialty Start Date End Date Yusra Howard MD [address] [place] [id number] PCP - General Family Medicine 06/22/20 documented as of this encounter
--- OUTSIDE RECORDS SUMMARY | 2025-03-04 07:58 | XMS_ITS | Clinical Summary ---
Author Organization [facility] Address [address] [place] [id number] Phone Care Team Providers Care Skein Washer Name Role Phone Yusra Howard MD Primary [...] years) (1 of 2 - PCV) 10/30/2011 INFLUENZA VACCINE (#1) 2025 COVID-19 VACCINE (1 - 2023-2 5 season) 2025 HEPATITIS A VACCINES Aged Out No long [...] topic Medical Devices Not on file Insurance [facility] PPO [facility] PPO [facility] PPO [facility] PPO [facility] PPO [facility] PPO Care Teams Skein Washer Relationship Specialty Start Date End Date Yusra Howard MD PCP - General 04/11/22 Additional Source Comments The information contained in this document represents components of the legal health record. It is not the complete legal health record.[facility]
== END 2025-03-04 07:56 | disposition home or self-care (01) ==
LOC: HO.MRI 07:55
PROVIDERS: PCP General Practice; Visit Provider Nurse Practitioner Family
DX: M54.50 Low back pain, unspecified (principal)
CPT/HCPCS: 72148